=== PATIENT | male | born 1955 | race American Indian/Alaskan Native ===

== ENCOUNTER 2017-09-01 17:43 | Emergency (ER) | payer MEDICAID ==
[2017-09-01 17:54] VITALS: BP 166/80; PULSE 82; RESP 18; TEMP 98; O2SAT 99
--- NOTE | 2017-09-01 18:57 | RAD ---
Indication: Painful mass Right femur radiographs Comparison: None available Findings: Dense vascular calcifications. Degenerative changes with right hip joint space narrowing. Suprapatellar enthesophyte. No acute displaced fracture. No dislocation. Impression: No acute findings appreciated. See above.
--- NOTE | 2017-09-01 18:58 | C.PDOC ---
History Of Present Illness 62 yo male come in for evaluation of Right thigh mass ' for past few years". Pt sts, recently developed some tingling over Right thigh. Otherwise, denies known trauma or injury, fever, chills, deformity, weakness, sensory or vascular deficits to Right leg. Ambulate to Ed for evaluation, not in any apparent distress. Time Seen by Provider: 09/01/17 18:11 Chief Complaint (Nursing): Lower Extremity Problem/Injury History Per: Patient Onset/Duration Of Symptoms: Gradual Past Medical History Reviewed: Historical Data, Nursing Documentation, Vital Signs Vital Signs: Last Vital Signs Temp 98 F 09/01/17 17:53 Pulse 82 09/01/17 17:53 Resp 18 09/01/17 17:53 BP 166/80 H 09/01/17 17:53 Pulse Ox 99 09/01/17 19:14 - Medical History PMH: Asthma, HTN Family History: States: No Known Family Hx - Social History Hx Alcohol Use: Yes Hx Substance Use: No - Immunization History Hx Tetanus Toxoid Vaccination: No Hx Influenza Vaccination: No Hx Pneumococcal Vaccination: No Review Of Systems Except As Marked, All Systems Reviewed And Found Negative. Constitutional: Negative for: Fever, Chills ENT: Negative for: Throat Pain Gastrointestinal: Negative for: Nausea, Vomiting, Abdominal Pain Musculoskeletal: Positive for: Leg Pain Skin: Positive for: Lesions. Negative for: Rash Neurological: Negative for: Weakness, Numbness Physical Exam - Physical Exam Appears: Well, Non-toxic, No Acute Distress Skin: Normal Color, Warm, Dry, No Rash Head: Normacephalic Eye(s): bilateral: PERRL Extremity: Normal ROM (RLE), Tenderness (mild over posterior Right thigh with palpable deep mass. No skin erythema, no flactulance.), No Pedal Edema, No Calf Tenderness (Right), No Deformity, No Swelling Neurological/Psych: Oriented x3, Normal Speech ED Course And Treatment O2 Sat by Pulse Oximetry: 99 Pulse Ox Interpretation: Normal - Other Rad Right femur Interpretation: Indication: Painful mass. Right femur radiographs. Comparison : None available. Findings: Dense vascular calcifications. Degenerative changes with right hip joint space narrowing. Suprapatellar enthesophyte. No acute displaced fracture. No dislocation. Impression: No acute findings appreciated. See above. Progress Note: On re-eval, pt is afebrile, hemodynamicaly stable. NOn-toxic. Ambulatory in ED with stable gait. RLE: small palpable deep mass posterior thigh. No skin changes, no erythema, no flactulance. FAROM, no neurovascular deficits. Imaginging review and no acute findings noted. results review and discussed with pt. Pt advised. ref. to f/u with PMD, Ortho in 2-3 days for re- eval. Return to ED if any worsening or new changes. Disposition Counseled Patient/Family Regarding: Studies Performed, Diagnosis, Need For Followup - Disposition Referrals: Maria Luz Murrieta MD [Staff Provider] - Disposition: HOME/ ROUTINE Disposition Time: 19:05 Condition: STABLE Additional Instructions: Follow up with PMD, Surgery in 2-3 days for re-evaluation. Return to Ed if nay worsening or new changes. Forms: [employer] (Citizen Of [place]) - Clinical Impression Clinical Impression: Leg mass
== END 2017-09-01 19:42 | disposition home or self-care (01) ==
LOC: C.ER 17:43
DX: R22.41 Localized swelling, mass and lump, right lower limb (principal)